=== PATIENT | female | born 1955 | race Caucasian/White ===

== ENCOUNTER 2018-07-01 09:14 | Day surgery (SDC) | payer OTHER ==
[2018-06-28 11:12] VITALS: BMI 25.4
[~2018-07-01 09:14] MED LIST: PHENYLEPHRINE/KETOROLAC 4 ML VIAL IO ONE; TOBRA 0.3%/DEXAMETH 0.1% OPHTHALMIC SUSP 2.5 ML BTL TP ONE
[2018-07-01] MEDS ORDERED: PHENYLEPHRINE 2.5% OPHTH SOLN 15 ML BOTTLE ONE (10:01)
[2018-07-01] MEDS ORDERED: TROPICAMIDE 1% OPHTH SOLN 15 ML BOTTLE ONE (10:01)
[2018-07-01] MEDS ORDERED: CYCLOPENTOLATE HCL 1% OPHTH SOLN 2 ML BOTTLE ONE (10:01)
[2018-07-01] MEDS ORDERED: MOXIFLOXACIN HCL 0.5% OPHTHALMIC 3 ML BOTTLE ONE (10:01)
[2018-07-01] MEDS ORDERED: DICLOFENAC SODIUM 0.1% OPHTHALMIC 2.5ML BOTTLE ONE (10:02)
[2018-07-01] MEDS ORDERED: MOXIFLOXACIN HCL 0.5% OPHTHALMIC 3 ML BOTTLE OD ONE ×3 (10:20→10:30)
[2018-07-01] MEDS ORDERED: CYCLOPENTOLATE HCL 1% OPHTH SOLN 2 ML BOTTLE OD ONE ×3 (10:20→10:30)
[2018-07-01] MEDS ORDERED: PHENYLEPHRINE 2.5% OPHTH SOLN 15 ML BOTTLE OD ONE ×3 (10:20→10:30)
[2018-07-01] MEDS ORDERED: TROPICAMIDE 1% OPHTH SOLN 15 ML BOTTLE OD ONE ×3 (10:20→10:30)
[2018-07-01] MEDS ORDERED: DICLOFENAC SODIUM 0.1% OPHTHALMIC 2.5ML BOTTLE OD ONE ×3 (10:20→10:30)
[2018-07-01] MEDS ORDERED: MIDAZOLAM HCL 2 MG/2 ML SINGLE DOSE VIAL ONE (12:11)
[2018-07-01] MEDS ORDERED: TETRACAINE 0.5% OPHTH SOLN 2 ML BOTTLE OD ONE (12:17)
[2018-07-01] MEDS ORDERED: POVIDONE-IODINE 5% OPHTHALMIC PREP 30 ML SOLUTION OD ONE (12:18)
[2018-07-01] MEDS ORDERED: CHONDROITIN SU A/HYALUR SOD 1 KIT IO ONE (12:37)
[2018-07-01] MEDS ORDERED: BSS (NA/CA/MG/K) BALANCED SALT SOLUTION OPHTH SOLN 15 ML BOTTLE OD ONE (12:37)
[2018-07-01] MEDS ORDERED: LIDOCAINE HCL 1% PRESERVATIVE FREE - 30ML VIAL IO ONE (12:37)
[2018-07-01] MEDS ORDERED: PROPOFOL 20 ML ONE (12:42)
[2018-07-01] MEDS ORDERED: PHENYLEPHRINE/KETOROLAC 4 ML VIAL IO ONE (13:10)
[2018-07-01] MEDS ORDERED: TOBRA 0.3%/DEXAMETH 0.1% OPHTHALMIC SUSP 2.5 ML BTL TP ONE (13:30)
[2018-07-01] MEDS ORDERED: ALBUTEROL SO4 0.083% IH SOL 2.5 MG/3 ML VIAL.NEB. NEB ONE (14:37)
[2018-07-01 14:47] VITALS: TEMP 97.8
[2018-07-01 15:40] VITALS: BP 115/69; PULSE 104
--- NOTE | 2018-07-02 07:59 | OP ---
DATE OF OPERATION: 07/01/2018 SPECIALIST: Christy James MD DIAGNOSIS: Cataract, right eye. POSTOPERATIVE DIAGNOSIS: Cataract, right eye. ANESTHESIA: LMA. DESCRIPTION OF PROCEDURE: Patient was brought to the operating room, and the right eye was prepped and draped in the usual sterile fashion for ophthalmic surgery after placing tetracaine eye drops. The microscope was swung into position, and the patient started a dry cough with expectorant. She also was not following instructions. After which, a 2.75 keratome was used to enter the anterior chamber and filled with viscoelastic. At this point, it was decided to change from topical anesthesia to laryngeal mask airway, and after successful intubation, the procedure was carried out with an accessory port made at approximately 2 o'clock position after filling the anterior chamber with viscoelastic. Cystotome and Utrata forceps was used to make a continuous circular capsulorrhexis. BSS was used to perform hydrodissection and hydrodelineation of the lens nucleus, which was then rotated freely. Throughout the procedure, there was a lot of movement of the eye of the patients breathing. The procedure continued uneventfully. After performing phacoemulsification with a [id number]-lrg-[id number] technique, I/A was used to remove residual viscoelastic cortical material from the capsular bag, which was then found to be intact, in which was injected 18.0 AU00T0 IOL and dialed into position using the [employer] hook. I/A was used to remove residual viscoelastic from the capsular bag and anterior chamber. The corneal lip wounds were then hydrated with BSS, which were found to be watertight. Contact lens soaked in TobraDex solution for approximately 10 minutes was then draped on the cornea. The eye was patched and shielded. The patient was transferred to recovery room in a stable condition having tolerated the procedure well after uneventful extubation of the laryngeal mask anesthesia. Ginny [id number]
== END 2018-07-01 15:40 | disposition home or self-care (01) ==
LOC: JASU-SURG 09:14
PROVIDERS: ATTEND Ophthalmology
PROC: 08RJ3JZ Replacement of Right Lens with Synthetic Substitute, Percutaneous Approach (ICD-10-PCS; principal; 2018-07-01 11:00)
DX: H26.9 Unspecified cataract (principal)
CPT/HCPCS: 94760; C9447

== ENCOUNTER 2018-07-29 08:11 | Day surgery (SDC) | payer OTHER ==
[2018-07-26 17:57] VITALS: BMI 25.4
[2018-07-29] MEDS: DICLOFENAC SODIUM 0.1% OPHTHALMIC 2.5ML BOTTLE ONE ×3 (08:55→09:07)
[2018-07-29] MEDS: PHENYLEPHRINE 2.5% OPHTH SOLN 15 ML BOTTLE ONE ×3 (08:55→09:07)
[2018-07-29] MEDS: CYCLOPENTOLATE HCL 1% OPHTH SOLN 2 ML BOTTLE ONE ×3 (08:55→09:06)
[2018-07-29] MEDS: MOXIFLOXACIN HCL 0.5% OPHTHALMIC 3 ML BOTTLE ONE ×3 (08:55→09:07)
[2018-07-29] MEDS: TROPICAMIDE 1% OPHTH SOLN 15 ML BOTTLE ONE ×3 (08:55→09:07)
[2018-07-29] MEDS ORDERED: MIDAZOLAM HCL 2 MG/2 ML SINGLE DOSE VIAL ONE (10:36)
[2018-07-29] MEDS ORDERED: BSS (NA/CA/MG/K) BALANCED SALT SOLUTION OPHTH SOLN 15 ML BOTTLE ONE (10:40)
[2018-07-29] MEDS ORDERED: TOBRA 0.3%/DEXAMETH 0.1% OPHTHALMIC SUSP 2.5 ML BTL ONE ×2 (10:40→11:38)
[2018-07-29] MEDS ORDERED: LIDOCAINE HCL/PF 1% SDV 5ML VIAL ONE (10:40)
[2018-07-29] MEDS ORDERED: TETRACAINE 0.5% OPHTH SOLN 2 ML BOTTLE OS ONE (10:57)
[2018-07-29] MEDS ORDERED: DEXAMETHASONE SOD PHOSPHATE 4 MG/1 ML VIAL ONE (11:01)
[2018-07-29] MEDS ORDERED: PROPOFOL 20 ML ONE (11:03)
[2018-07-29] MEDS ORDERED: SUCCINYLCHOLINE CHLORIDE 200 MG/10 ML VIAL ONE (11:04)
[2018-07-29] MEDS ORDERED: POVIDONE-IODINE 5% OPHTHALMIC PREP 30 ML SOLUTION OS ONE (11:15)
[2018-07-29] MEDS ORDERED: BSS (NA/CA/MG/K) BALANCED SALT SOLUTION OPHTH SOLN 15 ML BOTTLE OS ONE (11:23)
[2018-07-29] MEDS ORDERED: CHONDROITIN SU A/HYALUR SOD 1 KIT IO ONE (11:23)
[2018-07-29] MEDS ORDERED: LIDOCAINE HCL 1% PRESERVATIVE FREE - 30ML VIAL IO ONE (11:23)
[2018-07-29] MEDS ORDERED: PHENYLEPHRINE HCL 10 MG/1 ML SINGLE DOSE VIAL ONE (11:25)
[2018-07-29] MEDS ORDERED: PHENYLEPHRINE/KETOROLAC 4 ML VIAL IO ONE (11:28)
[2018-07-29] MEDS ORDERED: TOBRA 0.3%/DEXAMETH 0.1% OPHTHALMIC SUSP 2.5 ML BTL TP ONE (11:45)
[2018-07-29] MEDS ORDERED: CHONDROITIN SU A/HYALUR SOD 1 KIT ONE (12:30)
[2018-07-29 13:03] VITALS: TEMP 98
[2018-07-29 13:33] VITALS: BP 110/68; PULSE 80
--- NOTE | 2018-07-29 21:09 | OP ---
DATE OF OPERATION: 07/29/2018 SURGEON: Jeff Kasper MD PREOPERATIVE DIAGNOSIS: Cataract, left eye. POSTOPERATIVE DIAGNOSIS: Cataract, left eye. PROCEDURE: Phacoemulsification of cataract left eye with in bag placement of 19.0 diopter [id number] with use of Omidria in the infusion bag. ANESTHESIA: General. DESCRIPTION OF PROCEDURE: The patient was brought to the operating room, and the left eye was prepped and draped in the usual sterile fashion for ophthalmic surgery after placing tetracaine eye drops. Before this, the LMA anesthesia was administered, and tetracaine eye drops were placed on the conjunctivae sac. A microscope was swung into position, and a 2.75 keratome was used to enter the anterior chamber at approximately 2 o'clock position with an accessory port made at approximately the 5 o'clock position after filling the anterior chamber with 0.5 mL of preservative-free lidocaine and Viscoat. The cystotome and Utrata forceps were used to make a continuous circular capsulorrhexis. BSS was used to perform hyrodissection and hydrodelineation of the lens nucleus, which was then rotated freely. Phacoemulsification was carried out in a krmwxl-vir-geheprz technique. IA was used to remove residual cortical material from the capsular bag, which was found to be intact, which was injected with [id number] a 19.0 diopter IOL. The IA was used to remove residual viscoelastic from the capsular bag and anterior chamber. BSS was used to perform hydration of the corneal lip wounds, which were found to be watertight. A contact lens soaked in Tobradex solution for approximately 10 minutes was then draped on the cornea. The eye was patched and shielded. Omidria was used in the infusion bag. The patient was extubated uneventfully and transferred to the recovery room in a stable condition having tolerated the procedure well. JEFF KASPER M.D. /[id number]
== END 2018-07-29 13:20 | disposition home or self-care (01) ==
LOC: JASU-SURG 08:11
PROVIDERS: ATTEND Ophthalmology
PROC: 08RK3JZ Replacement of Left Lens with Synthetic Substitute, Percutaneous Approach (ICD-10-PCS; principal; 2018-07-29 10:00)
DX: H26.9 Unspecified cataract (principal)
CPT/HCPCS: 94760; C9447

== ENCOUNTER 2022-02-04 02:53 | Inpatient (IN) | payer OTHER ==
[2022-02-04 03:22] VITALS: BMI 17.6
[2022-02-04] MEDS ORDERED: VANCOMYCIN 1 GM in D5W (PRE-DOCKED) 1,000 MG/250 ML IVPB ONE (03:34)
[2022-02-04 03:35] LABS: BASO % 0.6 % (0-2.0); EOS % 0.4 % (0-4.5)
[2022-02-04 03:39] LABS: HEMATOCRIT 39.3 % (32.4-45.2); HEMOGLOBIN 12.2 GM/dL (10.7-15.3); LYMPH % 17.9 % (8-40); MCH 28.8 pg (25.7-33.7); MCHC 31.1 g/dl (32.0-36.0); MEAN CELL VOLUME 92.5 fl (80-96); MEAN PLT VOLUME 13.8 fl (7.5-11.1); MONO % 6.6 % (3.8-10.2); NEUT % 74.5 % (42.8-82.8); RBC 4.24 M/mm3 (3.60-5.2); WHITE BLOOD COUNT 6.6 K/mm3 (4.0-10.0)
[2022-02-04 03:40] LABS: INR 0.97 (0.83-1.09); PROTHROMBIN TIME (PATIENT) 11.1 SEC (9.7-13.0)
[2022-02-04 03:43] LABS: ACTIVATED PTT 34.5 SECONDS (25.2-36.5)
[2022-02-04] MEDS ORDERED: VANCOMYCIN 1 GRAM (PRE-DOCKED) 1,000 MG/250 ML BAG IVPB ONE (03:45)
[2022-02-04] MEDS ORDERED: ALBUTEROL SO4 2.5/IPRATROPIUM 0.5 INH SOL 3 ML VIAL.NEB. NEB ONE (03:45)
[2022-02-04 03:52] LABS: ALBUMIN 3.6 g/dl (3.4-5.0); BLOOD UREA NITROGEN 13.3 mg/dL (7-18); CALCIUM 9.1 mg/dL (8.5-10.1)
[2022-02-04] MEDS: ALBUTEROL SO4 2.5/IPRATROPIUM 0.5 INH SOL 3 ML VIAL.NEB. NEB SCH (03:53)
[2022-02-04 03:55] LABS: CREATININE 0.6 mg/dL (0.55-1.3); PHOSPHOROUS 4.2 mg/dL (2.5-4.9)
[2022-02-04 03:57] LABS: BILIRUBIN,TOTAL 0.3 mg/dL (0.2-1); TOT PROT 6.9 g/dl (6.4-8.2)
[2022-02-04 04:00] LABS: N-TERMINAL BNP 87.2 pg/ml (5-125)
[2022-02-04 04:48] LABS: ARTERIAL BLD GAS O2 SATURATION 98.9 % (95-98); ARTERIAL BLOOD GAS BASE EXCESS 2.7 mmol/L (-2-2); ARTERIAL BLOOD GAS pH 7.334 (7.350-7.450)
[2022-02-04 05:12] LABS: PLATELET COUNT 71.5 10^3/uL (134-434); PLATELET ESTIMATE 71.5
[2022-02-04] MEDS ORDERED: ALBUTEROL SO4 0.083% IH SOL 2.5 MG/3 ML VIAL.NEB. NEB PRN (08:29)
[2022-02-04] MEDS ORDERED: MONTELUKAST NA 10 MG TABLET ONE (10:27)
[2022-02-04] MEDS ORDERED: HEPARIN NA (PORCINE) 5,000 UNITS/ML 1ML VIAL ONE (10:27)
[2022-02-04] MEDS ORDERED: PANTOPRAZOLE 20 MG TABLET PO ONE (10:28)
[2022-02-04] MEDS: methylPREDNISolone NA SUCC 40 MG/1 ML VIAL IVPUSH SCH (17:58)
[2022-02-04] MEDS: guaiFENesin 200 MG/10 ML 10 ML UNIT-DOSE CUPS PO PRN (18:22)
[2022-02-04] MEDS: HEPARIN NA (PORCINE) 5,000 UNITS/ML 1ML VIAL SQ SCH (21:15)
[2022-02-04] MEDS: ATORVASTATIN CA 40 MG TABLET (FP) PO SCH (21:16)
[2022-02-05] MEDS: methylPREDNISolone NA SUCC 40 MG/1 ML VIAL IVPUSH SCH ×3 (02:44→18:21)
[2022-02-05 07:13] LABS: HEMATOCRIT 35.3 % (32.4-45.2); HEMOGLOBIN 11.5 GM/dL (10.7-15.3); MCH 29.6 pg (25.7-33.7); MCHC 32.6 g/dl (32.0-36.0); MEAN CELL VOLUME 90.8 fl (80-96); MEAN PLT VOLUME 14.8 fl (7.5-11.1); PLATELET COUNT 50 10^3/uL (134-434); RBC 3.88 M/mm3 (3.60-5.2); RDW 14.8 % (11.6-15.6); WHITE BLOOD COUNT 5.7 K/mm3 (4.0-10.0)
[2022-02-05 07:36] LABS: ALBUMIN 3.6 g/dl (3.4-5.0); BLOOD UREA NITROGEN 19.5 mg/dL (7-18); CALCIUM 9.4 mg/dL (8.5-10.1)
[2022-02-05 07:40] LABS: CREATININE 0.8 mg/dL (0.55-1.3)
[2022-02-05 07:42] LABS: BILIRUBIN,TOTAL 0.4 mg/dL (0.2-1); TOT PROT 6.7 g/dl (6.4-8.2)
[2022-02-05 08:43] LABS: ANISOCYTOSIS 0; HELMET CELLS 0; HOWELL-JOLLY BODIES 0; MACROCYTOSIS 0; OVALOCYTE 0; ROULEAU 0; SICKELED CELLS 0; TARGET CELLS 0; TEAR DROP CELLS 0; TOXIC GRANULATION 0
[2022-02-05] MEDS: BUDESONIDE/FORMETEROL FUMARATE 160/4.5 mcg INHALER IH SCH (10:35)
[2022-02-05] MEDS: HEPARIN NA (PORCINE) 5,000 UNITS/ML 1ML VIAL SQ SCH ×2 (10:36→21:17)
[2022-02-05] MEDS: MONTELUKAST NA 10 MG TABLET PO SCH (10:37)
[2022-02-05] MEDS: PANTOPRAZOLE 40 MG TABLET PO SCH (10:37)
[2022-02-05] MEDS: guaiFENesin 200 MG/10 ML 10 ML UNIT-DOSE CUPS PO PRN (14:37)
[2022-02-05] MEDS: ATORVASTATIN CA 40 MG TABLET (FP) PO SCH (21:17)
[2022-02-06] MEDS: guaiFENesin 200 MG/10 ML 10 ML UNIT-DOSE CUPS PO PRN ×2 (00:34→21:14)
[2022-02-06] MEDS: BUDESONIDE/FORMETEROL FUMARATE 160/4.5 mcg INHALER IH SCH ×5 (00:50→21:15)
[2022-02-06] MEDS: methylPREDNISolone NA SUCC 40 MG/1 ML VIAL IVPUSH SCH ×3 (01:03→17:10)
[2022-02-06] MEDS: HEPARIN NA (PORCINE) 5,000 UNITS/ML 1ML VIAL SQ SCH ×3 (09:23→22:18)
[2022-02-06] MEDS: MONTELUKAST NA 10 MG TABLET PO SCH ×2 (09:23→09:48)
[2022-02-06] MEDS: PANTOPRAZOLE 40 MG TABLET PO SCH ×2 (09:23→09:48)
[2022-02-06] MEDS: ALBUTEROL SO4 2.5/IPRATROPIUM 0.5 INH SOL 3 ML VIAL.NEB. NEB SCH ×2 (15:50→20:39)
[2022-02-06] MEDS: ATORVASTATIN CA 40 MG TABLET (FP) PO SCH (21:14)
[2022-02-07] MEDS: methylPREDNISolone NA SUCC 40 MG/1 ML VIAL IVPUSH SCH ×4 (02:24→18:33)
[2022-02-07] MEDS: ALBUTEROL SO4 2.5/IPRATROPIUM 0.5 INH SOL 3 ML VIAL.NEB. NEB SCH ×4 (08:02→19:14)
[2022-02-07] MEDS: PANTOPRAZOLE 40 MG TABLET PO SCH (11:13)
[2022-02-07] MEDS: MONTELUKAST NA 10 MG TABLET PO SCH (11:13)
[2022-02-07] MEDS: BUDESONIDE/FORMETEROL FUMARATE 160/4.5 mcg INHALER IH SCH ×2 (11:14→21:15)
[2022-02-07] MEDS: HEPARIN NA (PORCINE) 5,000 UNITS/ML 1ML VIAL SQ SCH ×2 (11:14→21:15)
[2022-02-07 12:12] LABS: HEMATOCRIT 32.6 % (32.4-45.2); HEMOGLOBIN 10.5 GM/dL (10.7-15.3); LYMPH % 12.2 % (8-40); MCH 29.2 pg (25.7-33.7); MCHC 32.3 g/dl (32.0-36.0); MEAN CELL VOLUME 90.4 fl (80-96); MEAN PLT VOLUME 15.3 fl (7.5-11.1); MONO % 12.7 % (3.8-10.2); NEUT % 75.1 % (42.8-82.8); RBC 3.61 M/mm3 (3.60-5.2); WHITE BLOOD COUNT 5.7 K/mm3 (4.0-10.0)
[2022-02-07 12:35] LABS: CALCIUM 8.9 mg/dL (8.5-10.1)
[2022-02-07 12:36] LABS: ALBUMIN 3.2 g/dl (3.4-5.0); BLOOD UREA NITROGEN 19.1 mg/dL (7-18)
[2022-02-07 12:39] LABS: PLATELET COUNT 46 10^3/uL (134-434)
[2022-02-07 12:40] LABS: TOT PROT 5.9 g/dl (6.4-8.2)
[2022-02-07 12:41] LABS: BILIRUBIN,TOTAL 0.3 mg/dL (0.2-1); CREATININE 0.6 mg/dL (0.55-1.3)
[2022-02-07] MEDS ORDERED: ALBUTEROL SO4 0.083% IH SOL 2.5 MG/3 ML VIAL.NEB. NEB PRN ×2 (17:44→17:52)
[2022-02-07] MEDS: ATORVASTATIN CA 40 MG TABLET (FP) PO SCH (21:14)
[2022-02-08] MEDS: methylPREDNISolone NA SUCC 40 MG/1 ML VIAL IVPUSH SCH ×3 (01:36→17:16)
[2022-02-08] MEDS: ALBUTEROL SO4 2.5/IPRATROPIUM 0.5 INH SOL 3 ML VIAL.NEB. NEB SCH ×4 (07:53→20:07)
[2022-02-08] MEDS: MONTELUKAST NA 10 MG TABLET PO SCH (09:49)
[2022-02-08] MEDS: PANTOPRAZOLE 40 MG TABLET PO SCH (09:49)
[2022-02-08] MEDS: HEPARIN NA (PORCINE) 5,000 UNITS/ML 1ML VIAL SQ SCH ×2 (09:49→21:36)
[2022-02-08] MEDS: BUDESONIDE/FORMETEROL FUMARATE 160/4.5 mcg INHALER IH SCH ×2 (09:50→21:36)
[2022-02-08] MEDS: guaiFENesin 200 MG/10 ML 10 ML UNIT-DOSE CUPS PO PRN ×2 (12:13→18:16)
[2022-02-08] MEDS: ATORVASTATIN CA 40 MG TABLET (FP) PO SCH (21:36)
[2022-02-09] MEDS: methylPREDNISolone NA SUCC 40 MG/1 ML VIAL IVPUSH SCH ×3 (01:17→17:41)
[2022-02-09] MEDS: ALBUTEROL SO4 2.5/IPRATROPIUM 0.5 INH SOL 3 ML VIAL.NEB. NEB SCH ×4 (07:18→20:00)
[2022-02-09] MEDS: MONTELUKAST NA 10 MG TABLET PO SCH (09:56)
[2022-02-09] MEDS: PANTOPRAZOLE 40 MG TABLET PO SCH (09:56)
[2022-02-09] MEDS: BUDESONIDE/FORMETEROL FUMARATE 160/4.5 mcg INHALER IH SCH ×2 (09:57→23:44)
[2022-02-09] MEDS: HEPARIN NA (PORCINE) 5,000 UNITS/ML 1ML VIAL SQ SCH ×2 (10:00→23:44)
[2022-02-09] MEDS ORDERED: FAMOTIDINE 20 MG/50 ML IVPB 20 MG/50 ML MG IVPB ONE ×2 (12:56→16:45)
[2022-02-09] MEDS ORDERED: KETOROLAC TROMETHAMINE 30 MG/1 ML VIAL IVPUSH ONE (12:57)
[2022-02-09 14:07] LABS: HEMATOCRIT 35.2 % (32.4-45.2); HEMOGLOBIN 11.5 GM/dL (10.7-15.3); MCH 29.4 pg (25.7-33.7); MCHC 32.7 g/dl (32.0-36.0); MEAN CELL VOLUME 90.1 fl (80-96); MEAN PLT VOLUME 15.7 fl (7.5-11.1); PLATELET COUNT 50 10^3/uL (134-434); RBC 3.91 M/mm3 (3.60-5.2); RDW 14.9 % (11.6-15.6)
[2022-02-09 14:42] LABS: ALBUMIN 3.5 g/dl (3.4-5.0); BILIRUBIN,TOTAL 0.3 mg/dL (0.2-1); BLOOD UREA NITROGEN 20.7 mg/dL (7-18); CALCIUM 9.6 mg/dL (8.5-10.1); CREATININE 0.6 mg/dL (0.55-1.3); TOT PROT 6.4 g/dl (6.4-8.2)
[2022-02-09] MEDS: ATORVASTATIN CA 40 MG TABLET (FP) PO SCH (23:44)
[2022-02-10] MEDS: methylPREDNISolone NA SUCC 40 MG/1 ML VIAL IVPUSH SCH ×2 (01:58→09:57)
[2022-02-10 04:09] LABS: EPI CELLS 14 /uL (0-25.1); HYALINE CASTS 2 /uL (0-3.1); PH,URINE 6.5 (5.0-8.0); URINE APPEARANCE CLEAR; URINE BACTERIA 4 /uL (0-1359); URINE BILIRUBIN NEGATIVE (NEGATIVE); URINE COLOR YELLOW; URINE GLUCOSE (UA) NEGATIVE (NEGATIVE); URINE KETONE NEGATIVE (NEGATIVE); URINE LEUK ESTERASE NEGATIVE (NEGATIVE); URINE NITRITE NEGATIVE (NEGATIVE); URINE PROTEIN NEGATIVE (NEGATIVE); URINE RBC 38 /uL (0-23.9); URINE UROBILINOGEN 0.2 mg/dL (0.2-1.0); URINE WBC 5 /uL (0-25.8)
[2022-02-10] MEDS: ALBUTEROL SO4 2.5/IPRATROPIUM 0.5 INH SOL 3 ML VIAL.NEB. NEB SCH ×3 (07:29→15:20)
[2022-02-10] MEDS: HEPARIN NA (PORCINE) 5,000 UNITS/ML 1ML VIAL SQ SCH (09:56)
[2022-02-10] MEDS: MONTELUKAST NA 10 MG TABLET PO SCH (09:57)
[2022-02-10] MEDS: PANTOPRAZOLE 40 MG TABLET PO SCH (09:57)
[2022-02-10] MEDS: BUDESONIDE/FORMETEROL FUMARATE 160/4.5 mcg INHALER IH SCH (09:57)
[2022-02-10 14:03] VITALS: BP 124/78; PULSE 92; TEMP 98.2
[2022-02-10] MEDS ORDERED: methylPREDNISolone NA SUCC 40 MG/1 ML VIAL IVPUSH SCH (18:00)
[2022-02-11] MEDS ORDERED: predniSONE 20 MG TABLET (UD) PO SCH (10:00)
== END 2022-02-10 18:35 | DRG 140 ==
LOC: JER 02:53 → JERBED 05:46 → UNDOADMIN 05:46 → J4W 12:57 → J7W 02-07 12:58
PROVIDERS: ADMIT Family Medicine; ATTEND Family Medicine
DX: J44.1 Chronic obstructive pulmonary disease with (acute) exacerbation (principal); J96.02 Acute respiratory failure with hypercapnia; J96.01 Acute respiratory failure with hypoxia; D69.6 Thrombocytopenia, unspecified; R64 Cachexia; E78.5 Hyperlipidemia, unspecified; Z88.0 Allergy status to penicillin; Z86.73 Personal history of transient ischemic attack (TIA), and cerebral infarction without residual deficits; Z68.1 Body mass index [BMI] 19.9 or less, adult
CPT/HCPCS: 0241U-QW; 36415; 36600; 71045-TC-FY; 71250-TC; 80053; 81003; 82803; 83735; 83880; 84100; 84484; 85025; 85027; 85610; 85730; 87086; 93005; 93010; 94640; 94660; 97116-GP; 97161-GP; 99285-25; J1644